=== PATIENT | female | born 1985 | race Caucasian/White ===

== ENCOUNTER 2020-05-08 16:02 | Inpatient (IN) | payer OTHER ==
[~2020-05-08] VITALS: Ht 157.5 cm; Wt 103.0 kg
[2020-05-08 16:26] LABS: *BILIRUBIN,URIN NEGATIVE (NEGATIVE); *CLARITY,URINE CLEAR (CLEAR); *COLOR,URINE YELLOW (YELLOW); *KETONES,URINE NEGATIVE (NEGATIVE); *UROBILINOGEN,URINE 0.2 E.U./dl (NORMAL); LEUKOCYTE ESTERASE ,URINE NEGATIVE (NEGATIVE); NITRITE, URINE NEGATIVE (NEGATIVE); PH,URINE 6.5 (5.0-8.0); UGLUCOSE NEGATIVE (NEGATIVE)
[2020-05-08 16:30] LABS: *BLOOD, URINE TRACE (NEGATIVE); *URINE HCG, QUAL NEG (NEGATIVE)
[2020-05-08] MEDS ORDERED: MORPHINE SULFATE 2 MG/1 ML DISP.SYRIN IV ONE (16:30)
[2020-05-08] MEDS ORDERED: ONDANSETRON 4 MG/2 ML VIAL IV ONE (16:30)
[2020-05-08] MEDS ORDERED: IV NORMAL SALINE 1000 ML BAG IV ONE (16:30)
[2020-05-08] MEDS ORDERED: PANTOPRAZOLE SODIUM 40 MG VIAL IV ONE ×2 (16:30→18:30)
[2020-05-08] MEDS ORDERED: ONDANSETRON 4 MG/2 ML VIAL ONE (16:37)
[2020-05-08] MEDS ORDERED: PANTOPRAZOLE SODIUM 40 MG VIAL ONE ×3 (16:37→18:40)
[2020-05-08] MEDS ORDERED: MORPHINE SULFATE 2 MG/1 ML DISP.SYRIN ONE ×2 (16:38→18:36)
[2020-05-08 16:46] LABS: BASOPHILS # (AUTO) 0.2 K/uL (0.0-8.0); BASOPHILS % (AUTO) 1.3 % (0.0-2.0); EOSINOPHILS # (AUTO) 0.4 K/uL (0.0-0.7); HEMATOCRIT 39.3 % (31.2-41.9); LYMPHOCYTES # (AUTO) 3.1 K/uL (20.0-40.0); LYMPHOCYTES % (AUTO) 26.7 % (20.5-51.5); MEAN CORPUSCULAR HEMOGLOBIN 26.6 uug (24.7-32.8); MEAN CORPUSCULAR HGB CONC 33 g/dL (32.3-35.6); MEAN CORPUSCULAR VOLUME 80.4 fL (75.5-95.3); MONOCYTES # (AUTO) 0.6 K/uL (2.0-10.0); MONOCYTES % (AUTO) 5.2 % (0.0-11.0); NEUTROPHILS # (AUTO) 7.5 K/uL (1.8-8.9); NEUTROPHILS % (AUTO) 63.8 % (38.5-71.5); PLATELET COUNT (AUTO) 610 K/uL (179-408); RED BLOOD CELL COUNT(AUTO) 4.89 MIL/uL (3.63-4.92); WHITE BLOOD COUNT (AUTO) 11.7 K/uL (3.8-11.8)
[2020-05-08 16:49] LABS: CREATININE 0.7 mg/dL (0.6-1.3); POTASSIUM 3.7 mmol/L (3.5-5.1)
[2020-05-08 16:55] LABS: BILIRUBIN,DIRECT 0.1 mg/dL (0.0-0.2); BILIRUBIN,TOTAL 0.3 mg/dL (0.2-1.0)
[2020-05-08] MEDS ORDERED: HYDROMORPHONE 1 MG/1 ML DISP.SYRIN IV ONE ×2 (17:00→17:45)
[2020-05-08] MEDS ORDERED: HYDROMORPHONE 1 MG/1 ML DISP.SYRIN ONE ×2 (17:00→17:36)
[2020-05-08] MEDS ORDERED: LIDOCAINE VISCUS 2% 15 ML UDC ONE (18:13)
[2020-05-08] MEDS ORDERED: MAG HYDROX/AL HYDROX/SIMETH 30 ML LIQUID UDC ONE (18:13)
[2020-05-08] MEDS ORDERED: MAG HYDROX/AL HYDROX/SIMETH 30 ML LIQUID UDC PO ONE (18:15)
[2020-05-08] MEDS ORDERED: LIDOCAINE VISCUS 2% 15 ML UDC MM ONE (18:15)
[2020-05-08] MEDS ORDERED: MORPHINE SULFATE 4 MG/1 ML DISP.SYRIN IV ONE (18:30)
[2020-05-08 18:36] LABS: BACTERIA,URINE NONE SEEN /HPF (NONE SEEN); SQUAMOUS EPITHELIAL CELL,UR FEW /HPF (NONE SEEN); WBC,URINE 0-3 /HPF (0-3)
[2020-05-08] MEDS ORDERED: MORPHINE SULFATE 4 MG/1 ML DISP.SYRIN ONE (18:36)
[2020-05-08] MEDS ORDERED: KETAMINE HCL 500 MG/10 ML INJ IV ONE (19:00)
[2020-05-08] MEDS ORDERED: TEMAZEPAM 15 MG CAPSULE PO PRN (19:15)
[2020-05-08] MEDS ORDERED: IV NS 1000 ML 1,000 ML IV ONE (19:15)
[2020-05-08] MEDS ORDERED: METOCLOPRAMIDE HCL 10 MG/2 ML VIAL IV ONE (19:15)
[2020-05-08] MEDS ORDERED: ACETAMINOPHEN 325 MG TABLET PO PRN (19:15)
[2020-05-08] MEDS ORDERED: MAGNESIUM HYDROXIDE 30 ML LIQUID UDC PO PRN (19:15)
[2020-05-08] MEDS ORDERED: diphenhydrAMINE 50 MG/1 ML VIAL IV ONE (19:15)
[2020-05-08] MEDS ORDERED: Z GUARD REMEDY PASTE 57 GM TUBE TOP PRN (19:15)
[2020-05-08 20:28] VITALS: BP 141/93
[2020-05-08] MEDS: ONDANSETRON 4 MG/2 ML VIAL IV PRN (21:51)
[2020-05-08] MEDS: IV NS 1000 ML 1,000 ML IV PRN (21:51)
[2020-05-08] MEDS: MORPHINE SULFATE 2 MG/1 ML DISP.SYRIN IV PRN (21:57)
[2020-05-09] MEDS: MORPHINE SULFATE 2 MG/1 ML DISP.SYRIN IV PRN (02:03)
[2020-05-09] MEDS: ONDANSETRON 4 MG/2 ML VIAL IV PRN (03:47)
[2020-05-09 04:48] VITALS: BP 117/75
[2020-05-09] MEDS: IV NS 1000 ML 1,000 ML IV PRN ×2 (06:32→17:05)
[2020-05-09 06:55] LABS: BASOPHILS % (AUTO) 0.4 % (0.0-2.0); EOSINOPHILS # (AUTO) 0.2 K/uL (0.0-0.7); EOSINOPHILS % (AUTO) 1.8 % (0.0-7.0); HEMATOCRIT 33.7 % (31.2-41.9); HEMOGLOBIN 11.1 g/dL (10.9-14.3); LYMPHOCYTES # (AUTO) 2.5 K/uL (20.0-40.0); LYMPHOCYTES % (AUTO) 22.3 % (20.5-51.5); MEAN CORPUSCULAR HEMOGLOBIN 26.7 uug (24.7-32.8); MEAN CORPUSCULAR HGB CONC 33 g/dL (32.3-35.6); MEAN CORPUSCULAR VOLUME 81.2 fL (75.5-95.3); MONOCYTES # (AUTO) 0.6 K/uL (2.0-10.0); MONOCYTES % (AUTO) 5.5 % (0.0-11.0); NEUTROPHILS # (AUTO) 7.8 K/uL (1.8-8.9); PLATELET COUNT (AUTO) 476 K/uL (179-408); RED BLOOD CELL COUNT(AUTO) 4.16 MIL/uL (3.63-4.92); WHITE BLOOD COUNT (AUTO) 11.1 K/uL (3.8-11.8)
[2020-05-09 07:12] LABS: CREATININE 0.7 mg/dL (0.6-1.3); PHOSPHOROUS 3.4 mg/dL (2.5-4.9); POTASSIUM 3.5 mmol/L (3.5-5.1)
[2020-05-09] MEDS: METOCLOPRAMIDE HCL 10 MG/2 ML VIAL IV PRN ×3 (08:29→21:25)
[2020-05-09] MEDS: PANTOPRAZOLE SODIUM 40 MG VIAL IV SCH (08:30)
[2020-05-09 08:40] LABS: THYROID STIMULATING HORMONE 1.66 mIU/mL (0.358-3.740)
[2020-05-09] MEDS: HYDROMORPHONE 1 MG/1 ML DISP.SYRIN IV PRN ×3 (08:48→20:00)
[2020-05-09 11:18] VITALS: BP 105/68
[2020-05-09 14:47] VITALS: BP 126/85
[2020-05-09 20:00] VITALS: BP 114/73
[2020-05-10] MEDS: HYDROMORPHONE 1 MG/1 ML DISP.SYRIN IV PRN ×4 (00:18→18:02)
[2020-05-10] MEDS: IV NS 1000 ML 1,000 ML IV PRN ×3 (01:18→22:23)
[2020-05-10] MEDS: LORAZEPAM 2 MG/1 ML VIAL IV PRN (03:00)
[2020-05-10 04:00] VITALS: BP 118/76
[2020-05-10 07:30] VITALS: BP 118/68
[2020-05-10 08:10] LABS: CREATININE 0.6 mg/dL (0.6-1.3); POTASSIUM 3.1 mmol/L (3.5-5.1)
[2020-05-10 08:17] LABS: BASOPHILS % (AUTO) 0.3 % (0.0-2.0); EOSINOPHILS # (AUTO) 0.3 K/uL (0.0-0.7); EOSINOPHILS % (AUTO) 2.3 % (0.0-7.0); HEMATOCRIT 34.9 % (31.2-41.9); HEMOGLOBIN 11.5 g/dL (10.9-14.3); LYMPHOCYTES # (AUTO) 2.9 K/uL (20.0-40.0); MEAN CORPUSCULAR HEMOGLOBIN 26.7 uug (24.7-32.8); MEAN CORPUSCULAR HGB CONC 33 g/dL (32.3-35.6); MEAN CORPUSCULAR VOLUME 81.1 fL (75.5-95.3); MONOCYTES # (AUTO) 0.7 K/uL (2.0-10.0); MONOCYTES % (AUTO) 5.4 % (0.0-11.0); NEUTROPHILS # (AUTO) 8.6 K/uL (1.8-8.9); PLATELET COUNT (AUTO) 492 K/uL (179-408); WHITE BLOOD COUNT (AUTO) 12.5 K/uL (3.8-11.8)
[2020-05-10] MEDS: PANTOPRAZOLE SODIUM 40 MG VIAL IV SCH (08:22)
[2020-05-10] MEDS: POTASSIUM CHLORIDE 50 ML IV SCH ×2 (10:23→11:36)
[2020-05-10] MEDS: METOCLOPRAMIDE HCL 10 MG/2 ML VIAL IV SCH ×2 (13:00→22:20)
[2020-05-10 15:50] VITALS: BP 111/73
[2020-05-10] MEDS: ONDANSETRON 4 MG/2 ML VIAL IV PRN (18:02)
[2020-05-10 20:43] VITALS: BP 130/90
[2020-05-11] MEDS: HYDROMORPHONE 1 MG/1 ML DISP.SYRIN IV PRN (00:25)
[2020-05-11] MEDS: LORAZEPAM 2 MG/1 ML VIAL IV PRN (01:47)
[2020-05-11 04:50] VITALS: BP 117/73
[2020-05-11] MEDS: METOCLOPRAMIDE HCL 10 MG/2 ML VIAL IV SCH ×2 (05:35→13:15)
[2020-05-11] MEDS: IV NS 1000 ML 1,000 ML IV PRN ×2 (05:45→14:00)
[2020-05-11 06:12] LABS: BASOPHILS % (AUTO) 0.2 % (0.0-2.0); EOSINOPHILS # (AUTO) 0.3 K/uL (0.0-0.7); EOSINOPHILS % (AUTO) 2.6 % (0.0-7.0); HEMOGLOBIN 11.6 g/dL (10.9-14.3); LYMPHOCYTES # (AUTO) 3.2 K/uL (20.0-40.0); LYMPHOCYTES % (AUTO) 26.7 % (20.5-51.5); MEAN CORPUSCULAR HEMOGLOBIN 26.1 uug (24.7-32.8); MEAN CORPUSCULAR HGB CONC 32 g/dL (32.3-35.6); MONOCYTES # (AUTO) 0.7 K/uL (2.0-10.0); NEUTROPHILS # (AUTO) 7.8 K/uL (1.8-8.9); NEUTROPHILS % (AUTO) 64.5 % (38.5-71.5); PLATELET COUNT (AUTO) 527 K/uL (179-408); RED BLOOD CELL COUNT(AUTO) 4.44 MIL/uL (3.63-4.92); WHITE BLOOD COUNT (AUTO) 12.1 K/uL (3.8-11.8)
[2020-05-11 06:25] LABS: CREATININE 0.6 mg/dL (0.6-1.3); MAGNESIUM 2.2 mg/dL (1.8-2.4); POTASSIUM 3.2 mmol/L (3.5-5.1)
[2020-05-11] MEDS: PANTOPRAZOLE SODIUM 40 MG VIAL IV SCH (08:33)
[2020-05-11] MEDS ORDERED: HYDROCODONE/APAP 5-325MG TABLET PO PRN (10:00)
[2020-05-11] MEDS: POTASSIUM CHLORIDE 50 ML IV SCH ×4 (11:13→13:58)
[2020-05-11] MEDS: DOCUSATE SODIUM 100 MG CAPSULE PO SCH ×2 (11:13→21:16)
[2020-05-11 15:49] VITALS: BP 123/81
[2020-05-11] MEDS: ONDANSETRON 4 MG/2 ML VIAL IV PRN (18:07)
[2020-05-11 20:13] VITALS: BP 125/93
== END 2020-05-11 21:40 | disposition left against medical advice (07) | DRG 254 ==
LOC: ER 16:04 → OBSVTOIN 20:02 → MEDSURG3 20:02
PROVIDERS: ADMIT Nurse Practitioner Acute Care; ATTEND Nurse Practitioner Acute Care
DX: K31.84 Gastroparesis (principal); E66.01 Morbid (severe) obesity due to excess calories; Z68.41 Body mass index [BMI] 40.0-44.9, adult; Z80.0 Family history of malignant neoplasm of digestive organs; K76.0 Fatty (change of) liver, not elsewhere classified; E66.9 Obesity, unspecified; Z71.3 Dietary counseling and surveillance; K57.30 Diverticulosis of large intestine without perforation or abscess without bleeding; Z86.19 Personal history of other infectious and parasitic diseases
CPT/HCPCS: 36415; 76700; 83605; 83690; 83735; 84100; 84443; 84703; 85025; A4663; C9113; G0378; J1170; J1200; J2060; J2270; J2405; J2765; J3480; J3490; J7030

== ENCOUNTER 2021-04-14 23:32 | Emergency (ER) | payer OTHER ==
[~2021-04-14] VITALS: Ht 160 cm; Wt 99.8 kg
--- NOTE | 2021-04-15 00:29 | NUR ---
Dr. June at bedside for MSE.
[2021-04-15] MEDS ORDERED: ONDANSETRON ODT 4 MG TAB.RAPDIS ONE (00:45)
[2021-04-15] MEDS ORDERED: KETOROLAC TROMETHAMINE 60 MG INJ IM ONE ×2 (00:45→00:46)
[2021-04-15] MEDS ORDERED: HYDROCODONE/APAP 5-325MG TABLET PO ONE (00:45)
[2021-04-15] MEDS ORDERED: HYDROCODONE/APAP 5-325MG TABLET ONE (00:45)
[2021-04-15] MEDS ORDERED: ONDANSETRON ODT 4 MG TAB.RAPDIS SL ONE (00:45)
[2021-04-15 01:16] LABS: MEAN CORPUSCULAR HEMOGLOBIN 26.2 uug (24.7-32.8); MEAN CORPUSCULAR VOLUME 80.5 fL (75.5-95.3)
[2021-04-15 01:20] LABS: CARBON DIOXIDE 25 mmol/L (21-32); CHLORIDE 108 mmol/L (98-107); CREATININE 0.7 mg/dL (0.6-1.3); GLUCOSE 105 mg/dL (74-106); POTASSIUM 3.6 mmol/L (3.5-5.1); UREA NITROGEN, BLOOD 11 mg/dL (7-18)
[2021-04-15 01:28] LABS: ALANINE AMINOTRANSFERASE 25 U/L (14-59); ALKALINE PHOSPHATASE 73 U/L (50-136); ASPARTATE AMINOTRANSFERASE 14 U/L (15-37); BILIRUBIN,TOTAL 0.3 mg/dL (0.2-1.0); TOTAL PROTEIN, SERUM 7.7 g/dL (6.4-8.2)
[2021-04-15 02:22] LABS: PLATELET COUNT (AUTO) 605 K/uL (179-408)
[2021-04-15] MEDS ORDERED: HYDR-4209 PO (02:27)
[2021-04-15] MEDS ORDERED: ONDA4TAB5 PO (02:27)
[2021-04-15 02:38] LABS: *RHEUMATOID FACTOR SCREEN NEGATIVE (NEGATIVE)
--- NOTE | 2021-04-15 02:46 | NUR ---
Patient discharged to home in stable condition. Written and verbal after care instructions given. Patient verbalizes understanding of instructions. Stressed follow up or return to ER for worsening s/s. Pt out of ER with steady gait, no acute signs of distress, VSS, all belongings taken, provided with copies of lab results.
[2021-04-15 02:51] VITALS: BP 117/83
== END 2021-04-15 02:52 | disposition home or self-care (01) ==
LOC: ER 23:34
DX: M79.10 Myalgia, unspecified site (principal); M25.50 Pain in unspecified joint; E66.9 Obesity, unspecified; Z68.39 Body mass index [BMI] 39.0-39.9, adult; R70.0 Elevated erythrocyte sedimentation rate; Z20.822 Contact with and (suspected) exposure to COVID-19
CPT/HCPCS: 36415; 80053; 84702; 85025; 85379; 85385; 85651; 86430; 87426; 96372 ×2; 99283; J1885; A4663; Q0162